=== PATIENT | female | born 1990 | race Two or more races ===

== ENCOUNTER 2018-01-10 03:17 | Emergency (ER) | payer MEDICAID ==
[~2018-01-10] VITALS: Ht 170.2 cm; Wt 88.5 kg
[2018-01-10 04:02] LABS: APPEARANCE,URINE CLEAR; BILIRUBIN, URINE NEGATIVE (NEGATIVE); GLUCOSE, URINE (UA) NEGATIVE (NEGATIVE); KETONES,URINE NEGATIVE (NEGATIVE); LEUKOCYTE ESTERASE ,URINE 1+ (NEGATIVE); NITRITE,URINE NEGATIVE (NEGATIVE); PH,URINE 5 (4.5-8.0); PROTEIN,URINE NEGATIVE (NEGATIVE); UROBILINOGEN,URINE NORMAL MG/DL (0.0-1.0)
[2018-01-10 04:04] LABS: COLOR,URINE YELLOW
[2018-01-10 05:27] VITALS: BP 121/80
--- NOTE | 2018-01-10 23:23 | Emergency Room Report ---
History of Present Illness General Chief Complaint: Complications Present Illness HPI Patient is a 28-year-old female who presented after increased abdominal pain. Patient reports having been approximate 3 months . She reports having vaginal bleeding several days ago which had improved. Patient reports having onset after having sexual intercourse. Patient reports having passed some small amounts of clot. She denies any fever. She denies any severe nausea or vomiting. She states that she is . She denies any fever or severe vaginal bleeding. Allergies: Coded Allergies: No Known Allergies (Unverified , 01/10/18) Patient History Past Medical History: see triage record Last Menstrual Period: 10/2017 Now: Yes : 3 Para: 2 Reviewed Nursing Documentation: PMH: Agreed; PSxH: Agreed Nursing Documentation-PMH Past Medical History: No Stated History Review of Systems All Other Systems: negative except mentioned in HPI Physical Exam Vital Signs Date Time Temp Pulse Resp B/P (MAP) Pulse Ox O2 Delivery O2 Flow Rate FiO2 01/10/18 03:34 98.1 77 16 121/80 97 Room Air 98.1 Sp02 EP Interpretation: reviewed, normal General Appearance: normal inspection, well appearing, no apparent distress, alert, GCS 15 Head: atraumatic ENT: normal ENT inspection, hearing grossly normal, normal voice Neck: normal inspection, full range of motion, supple, no bony tend Respiratory: normal inspection, lungs clear, normal breath sounds, no respiratory distress, no retraction, no wheezing Cardiovascular #1: regular rate, rhythm, no edema Gastrointestinal: normal inspection, normal bowel sounds, non tender, soft, no guarding, no hernia Genitourinary: no CVA tenderness Musculoskeletal: normal inspection, back normal, normal range of motion Neurologic: normal inspection, alert, oriented x3, responsive, speech normal Psychiatric: normal inspection, judgement/insight normal, mood/affect normal Skin: normal inspection, normal color, no rash Medical Decision Making Diagnostic Impression: Primary Impression: Threatened miscarriage ER Course Patient presented for vaginal bleeding. Differential diagnosis included wasn't limited to ectopic , menorrhagia, coagulopathy, incomplete , threatened among others.Because of complexity of patient's case laboratory testing and imaging studies were ordered.Pelvic ultrasound showed intrauterine with heart tones approximately 154. The patient was noted be approximately 13 weeks . Patient is advised follow-up with her ASSOCIATE DIRECTOR CAREER SERVICES in 1-2 days. Patient is advised to return if any worsening condition or if any changes in status that are concerning. This report is dictated with [employer] modern greek studies professor software which may occasionally lead to discrepancies related to use of this software. Labs Test 01/10/18 03:50 Urine Color Yellow Urine Appearance Clear Urine pH 5 (4.5-8.0) Urine Specific [place] 1.030 (1.005-1.035) Urine Protein Negative (NEGATIVE) Urine Glucose (UA) Negative (NEGATIVE) Urine Ketones Negative (NEGATIVE) Urine Occult Blood Negative (NEGATIVE) Urine Nitrite Negative (NEGATIVE) Urine Bilirubin Negative (NEGATIVE) Urine Urobilinogen Normal MG/DL (0.0-1.0) Urine Leukocyte Esterase 1+ (NEGATIVE) Urine RBC 0-2 /HPF (0 - 2) Urine WBC 0-2 /HPF (0 - 2) Urine Squamous Epithelial Cells Few /LPF (NONE/OCC) Urine Bacteria Few /HPF (NONE) Last Vital Signs Date Time Temp Pulse Resp B/P (MAP) Pulse Ox O2 Delivery O2 Flow Rate FiO2 01/10/18 05:27 98.1 16 121/80 97 Room Air 98.1 01/10/18 03:34 77 Status: improved Disposition: HOME, SELF-CARE Condition: Stable Patient Instructions: Threatened Marco Santillan MD Jan 10, 2018 23:23
--- NOTE | 2018-01-11 14:31 | Diagnostic Imaging Report ---
Indications: Abdominal pain, spotting during . Technique: Transabdominal real-time grayscale and duplex Doppler imaging of intrauterine was performed. Findings: Comparison: None. A single live intrauterine is noted with heart rate of approximately 157 bpm. Composite gestational age by ultrasound based on crown-rump length, biparietal diameter, femur length, abdominal circumference and head circumference approximately 13 weeks and 6 days. Please note that this is a limited exam and anatomy is not well evaluated. Cervix appears long and closed. Ovaries not identified. IMPRESSION: Quach live intrauterine with composite gestational age by ultrasound approximately 13 weeks, 6 days. heart rate of approximately 157 bpm. Note: A negative ultrasound evaluation does not insure well-being or positive outcome for the . Clinical evaluation by [employer] is highly recommended
== END 2018-01-10 05:28 | disposition home or self-care (01) ==
LOC: EMR 03:58
DX: O20.0 Threatened abortion (principal); Z3A.13 13 weeks gestation of pregnancy
CPT/HCPCS: 76801; 76830; 81003; 99284

== ENCOUNTER 2018-02-04 22:07 | Emergency (ER) | payer MEDICAID ==
[~2018-02-04] VITALS: Ht 170.2 cm; Wt 88.5 kg
[2018-02-04 22:55] VITALS: BP 114/68
--- NOTE | 2018-02-04 23:09 | Emergency Room Report ---
History of Present Illness General Chief Complaint: Complications Source: Patient Present Illness HPI Is a 28-year-old female who is 4, para 2, a 1, 16 weeks . She was here on January 10 for vaginal bleeding. Ultrasound showed a live IUP at 13 weeks. She had follow-up since then. She present today with increasing vaginal bleeding and cramping. She says she passed a large clot and then now with bleeding. Right red blood. Cramping is mild. No trauma. Did have sexual activity recently. No other complaint. she is O positive Allergies: Coded Allergies: No Known Allergies (Unverified , 01/10/18) Patient History Past Medical History: see triage record, old chart reviewed Past Surgical History: Pertinent Family History: none Social History: Denies: smoking Last Menstrual Period: 4 months ago Now: Yes - 4 months : 4 Para: 2 Immunizations: other Reviewed Nursing Documentation: PMH: Agreed; PSxH: Agreed Nursing Documentation-PMH Past Medical History: No Stated History Review of Systems Eye: Denies: eye pain, blurred vision ENT: Denies: ear pain, nose congestion, throat swelling Respiratory: Denies: cough, shortness of breath Cardiovascular: Denies: chest pain, palpitations Gastrointestinal: Denies: abdominal pain, diarrhea, nausea, vomiting Musculoskeletal: Denies: back pain, joint pain Skin: Denies: rash Neurological: Denies: headache, numbness Endocrine: Denies: increased thirst, increased urine Hematologic/Lymphatic: Denies: easy bruising All Other Systems: negative except mentioned in HPI Physical Exam Vital Signs Date Time Temp Pulse Resp B/P (MAP) Pulse Ox O2 Delivery O2 Flow Rate FiO2 02/04/18 22:16 98.1 117 16 125/77 100 Room Air 98.1 vitals with tachycardia Sp02 EP Interpretation: reviewed, normal General Appearance: well appearing, no apparent distress, alert Head: normocephalic, atraumatic Eyes: bilateral eye PERRL, bilateral eye EOMI ENT: hearing grossly normal, normal pharynx Neck: full range of motion, supple, no meningismus Respiratory: chest non-tender, lungs clear, normal breath sounds Cardiovascular #1: regular rate, rhythm, no murmur Gastrointestinal: normal bowel sounds, non tender, no mass, no organomegaly, no bruit, non-distended Genitourinary: other - Bimanual exam done with female RN as patent attorney. Os is fingertip open. There is blood on my glove. Musculoskeletal: back normal, gait/station normal, normal range of motion Neurologic: alert, oriented x3 Psychiatric: mood/affect normal Skin: warm/dry Medical Decision Making Diagnostic Impression: Primary Impression: Threatened miscarriage ER Course Patient with a threatened miscarriage. Increasing bleeding is concerning. She is O+. I bedside ultrasound showed a live IUP with heart rate around 120. Good movement. Small subchorionic bleed. Explained to patient that she has increased risk for miscarriage. Unfortunately at this stage not much can be done. We'll put her on bed rest. No heavy lifting. No intercourse. She will need close follow-up with HIGH WORKER for repeat ultrasound area Last Vital Signs Date Time Temp Pulse Resp B/P (MAP) Pulse Ox O2 Delivery O2 Flow Rate FiO2 02/04/18 22:55 97.8 107 18 114/68 100 Room Air 97.8 Status: improved Disposition: HOME, SELF-CARE Condition: Stable Referrals: NON PHYSICIAN (PCP) Additional Instructions: No heavy lifting. No sexual intercourse or anything in the vaginal area. Follow-up with your HIGH WORKER within a week. You may need another ultrasound. Return if symptom worsen. JOSE MCKEON M.D. Feb 04, 2018 23:09
[2018-02-04 23:16] LABS: APPEARANCE,URINE CLEAR; BILIRUBIN, URINE NEGATIVE (NEGATIVE); GLUCOSE, URINE (UA) NEGATIVE (NEGATIVE); KETONES,URINE NEGATIVE (NEGATIVE); LEUKOCYTE ESTERASE ,URINE NEGATIVE (NEGATIVE); NITRITE,URINE NEGATIVE (NEGATIVE); PH,URINE 6 (4.5-8.0); PROTEIN,URINE NEGATIVE (NEGATIVE); UROBILINOGEN,URINE NORMAL MG/DL (0.0-1.0)
[2018-02-04 23:31] LABS: COLOR,URINE YELLOW
[2018-02-04 23:48] VITALS: BP 114/68
== END 2018-02-04 23:48 | disposition home or self-care (01) ==
LOC: EMR 22:34
DX: O20.0 Threatened abortion (principal); Z3A.16 16 weeks gestation of pregnancy
CPT/HCPCS: 81003; 99283

== ENCOUNTER 2019-02-09 03:49 | Emergency (ER) | payer SELFPAY ==
[~2019-02-09] VITALS: Ht 167.6 cm; Wt 90.7 kg
[2019-02-09 04:25] VITALS: BP 137/88
--- NOTE | 2019-02-09 04:25 | NUR ---
ER Nurse Note: Pt came from home c/o vaginal bleeding. Per pt, she and her partner had intercourse and noticed blood during and afterwards; pt stated this occured last night. Not currently bleeding. Pt denies pain but has discomfort in her suprapubic area. Pt stated she is since 1 week ago. Will continue to [facility].
--- NOTE | 2019-02-09 04:37 | Emergency Room Report ---
History of Present Illness General Chief Complaint: Vaginal Source: Patient Present Illness HPI HPI: 29-year-old G4, P2 female with history of stillborn via 2018 presents for evaluation of vaginal bleeding in the setting of . Patient states she gets irregular periods and her last menses was sometime in November. She took a home test approximately 1 week ago which read positive. Earlier this evening, she is engaged in intercourse with her partner and noted vaginal bleeding. It was a trace amount however did persist after intercourse. It is now stopped. She denies any pelvic pain but notes a slight pressure or discomfort. She denies any dysuria, vaginal discharge, abdominal pain, nausea, vomiting, fever or any other change in her health otherwise. PMH: Denies PSH: section Allergies: Denies Social Hx: Current tobacco use, denies alcohol or drug use Allergies: Coded Allergies: No Known Allergies (Unverified , 01/10/18) Patient History Last Menstrual Period: unknown Now: Yes Para: 2 Nursing Documentation-PMH Past Medical History: No History, Except For Hx Asthma: Yes Review of Systems All Other Systems: negative except mentioned in HPI Physical Exam Vital Signs Date Time Temp Pulse Resp B/P (MAP) Pulse Ox O2 Delivery O2 Flow Rate FiO2 02/09/19 04:11 98.4 112 18 137/88 (104) 100 Room Air General: Awake and alert, no acute distress HEENT: NC/AT. EOMI. Neck: Supple, trachea midline Chest Wall: No tenderness, no deformity Cardiovascular: RRR. S1 and S2 normal. No murmur appreciated Resp: Normal work of breathing. No cough, wheezing or crackles appreciated Abdomen: Abdomen is soft, B's, nondistended. Nontender Skin: Intact. No abrasions, laceration or rash over the exposed skin MSK: Normal tone and bulk. Moving all extremities. No obvious deformity. Neuro: Awake and alert. Mentating appropriately. Medical Decision Making ER Course 29-year-old G4, P2 female with history of miscarriage presents to the evaluation for post coital bleeding in the setting of positive urine test 1 week ago. Patient is in no acute distress and is currently not bleeding , no distress, no pain and has no complaints at this time. Will check labs including a quantitative hCG and if within the viable range can perform an ultrasound. Laboratory Tests Test 02/09/19 04:35 White Blood Count 11.9 K/UL (4.8-10.8) H Red Blood Count 4.49 M/UL (4.20-5.40) Hemoglobin 13.3 G/DL (12.0-16.0) Hematocrit 40.5 % (37.0-47.0) Mean Corpuscular Volume 90 FL (80-99) Mean Corpuscular Hemoglobin 29.7 PG (27.0-31.0) Mean Corpuscular Hemoglobin Concent 32.9 G/DL (32.0-36.0) Red Cell Distribution Width 12.4 % (11.6-14.8) Platelet Count 378 K/UL (150-450) Mean Platelet Volume 6.4 FL (6.5-10.1) L Neutrophils (%) (Auto) 67.2 % (45.0-75.0) Lymphocytes (%) (Auto) 22.8 % (20.0-45.0) Monocytes (%) (Auto) 7.3 % (1.0-10.0) Eosinophils (%) (Auto) 1.7 % (0.0-3.0) Basophils (%) (Auto) 1.0 % (0.0-2.0) Urine Color Pale yellow Urine Appearance Clear Urine pH 6 (4.5-8.0) Urine Specific [place] 1.020 (1.005-1.035) Urine Protein Negative (NEGATIVE) Urine Glucose (UA) Negative (NEGATIVE) Urine Ketones Negative (NEGATIVE) Urine Blood Negative (NEGATIVE) Urine Nitrite Negative (NEGATIVE) Urine Bilirubin Negative (NEGATIVE) Urine Urobilinogen Normal MG/DL (0.0-1.0) Urine Leukocyte Esterase Negative (NEGATIVE) Sodium Level 135 MMOL/L (136-145) L Potassium Level 3.6 MMOL/L (3.5-5.1) Chloride Level 101 MMOL/L (98-107) Carbon Dioxide Level 28 MMOL/L (21-32) Anion Gap 6 mmol/L (5-15) Blood Urea Nitrogen 12 mg/dL (7-18) Creatinine 0.7 MG/DL (0.55-1.30) Estimate Glomerular Filtration Rate > 60 mL/min (>60) Glucose Level 95 MG/DL (74-106) Calcium Level 8.8 MG/DL (8.5-10.1) Total Bilirubin 0.1 MG/DL (0.2-1.0) L Aspartate Amino Transferase (AST) 13 U/L (15-37) L Alanine Aminotransferase (ALT) 17 U/L (12-78) Alkaline Phosphatase 63 U/L (46-116) Total Protein 7.4 G/DL (6.4-8.2) Albumin 3.0 G/DL (3.4-5.0) L Globulin 4.4 g/dL Albumin/Globulin Ratio 0.7 (1.0-2.7) L Human Chorionic Gonadotropin, Quant 82332 mIU/mL (1-6) H Reevaluation Time: 07:04 Last Vital Signs Date Time Temp Pulse Resp B/P (MAP) Pulse Ox O2 Delivery O2 Flow Rate FiO2 02/09/19 04:11 98.4 112 18 137/88 (104) 100 Room Air Status: unchanged Reevaluation Impression Labs have returned largely within normal limits. hCG quantitative greater than 33,000. The patient is pending ultrasound. She will be signed out to Dr. Wong pending imaging and ultimate disposition. She remained stable condition Please note that this report is being documented using [employer] technology. This can lead to erroneous entry secondary to incorrect interpretation by the dictating instrument. Jae Calhoun MD Feb 09, 2019 04:37
[2019-02-09 05:13] LABS: APPEARANCE,URINE CLEAR; BILIRUBIN, URINE NEGATIVE (NEGATIVE); COLOR,URINE PALE YELLOW; GLUCOSE, URINE (UA) NEGATIVE (NEGATIVE); KETONES,URINE NEGATIVE (NEGATIVE); LEUKOCYTE ESTERASE ,URINE NEGATIVE (NEGATIVE); NITRITE,URINE NEGATIVE (NEGATIVE); PH,URINE 6 (4.5-8.0); PROTEIN,URINE NEGATIVE (NEGATIVE); UROBILINOGEN,URINE NORMAL MG/DL (0.0-1.0)
[2019-02-09 05:14] LABS: EOSINOPHILS % (AUTO) 1.7 % (0.0-3.0); HEMATOCRIT 40.5 % (37.0-47.0); HEMOGLOBIN 13.3 G/DL (12.0-16.0); LYMPHOCYTES % (AUTO) 22.8 % (20.0-45.0); MEAN CORPUSCULAR VOLUME 90 FL (80-99); MONOCYTES % (AUTO) 7.3 % (1.0-10.0); NEUTROPHILS % (AUTO) 67.2 % (45.0-75.0); PLATELET COUNT 378 K/UL (150-450); RED BLOOD COUNT 4.49 M/UL (4.20-5.40); RED CELL DISTRIBUTION WIDTH 12.4 % (11.6-14.8); WHITE BLOOD COUNT 11.9 K/UL (4.8-10.8)
[2019-02-09 05:21] LABS: ANION GAP 6 mmol/L (5-15); BLOOD UREA NITROGEN 12 mg/dL (7-18); CALCIUM 8.8 MG/DL (8.5-10.1); CARBON DIOXIDE 28 MMOL/L (21-32); CHLORIDE 101 MMOL/L (98-107); CREATININE 0.7 MG/DL (0.55-1.30); POTASSIUM 3.6 MMOL/L (3.5-5.1); SODIUM 135 MMOL/L (136-145)
[2019-02-09 05:26] LABS: ALANINE AMINOTRANSFERASE 17 U/L (12-78); ALBUMIN/GLOBULIN RATIO 0.7 (1.0-2.7); ALKALINE PHOSPHATASE 63 U/L (46-116); ASPARTATE AMINO TRANSFERASE 13 U/L (15-37); BILIRUBIN,TOTAL 0.1 MG/DL (0.2-1.0)
--- NOTE | 2019-02-09 06:05 | NUR ---
ER Nurse Note: US notified and pt understands and agrees to US. Pt VSS, no signs of distress. All safety measures met; will continue to [facility].
--- NOTE | 2019-02-09 06:38 | NUR ---
ER Nurse Note: Talked to a senior human resources representative from [employer] for US; was informed that the US inspection engineer is not answering but will continue to notify other US for the most available US. Pt calm, cooperative, will continue to [facility].
[2019-02-09 06:42] VITALS: BP 134/80
--- NOTE | 2019-02-09 06:51 | NUR ---
ER Nurse Note: F/U call with [place]; Charbel from is contacted.
--- NOTE | 2019-02-09 07:03 | NUR ---
ER Nurse Note: Pt a&ox4, VSS, no signs of distress. SLIV LT AC; patent. Awaiting US. All safety measures met; will endorse to oncoming shift for continuity of care.
--- NOTE | 2019-02-09 07:45 | NUR ---
ED Nurse Note: US staff at the bed side.
[2019-02-09 08:40] VITALS: BP 124/80
--- NOTE | 2019-02-09 08:40 | NUR ---
ER DISCHARGE NOTE: Patient is cleared to be discharged per ERMD, pt is aox4, on room air, with stable vital signs. pt was given dc and prescription instructions, pt was able to verbalize understanding, pt id band and iv site removed without complications. pt is able to ambulate with steady gait. pt took all belongings.
--- NOTE | 2019-02-09 09:09 | Diagnostic Imaging Report ---
EXAM: US After First Trimester, Transabdominal US , Transvaginal CLINICAL HISTORY: BLD TECHNIQUE: Real-time transabdominal and endovaginal obstetrical ultrasound of the maternal pelvis and a second or third trimester with image documentation. Endovaginal imaging was used for better evaluation of the fetus and adnexa. COMPARISON: No relevant prior studies available. FINDINGS: Fetus: Single live intrauterine corresponding to 14 weeks 1 day by ultrasound with estimated date of delivery 08/09/19. Patient is 11 weeks 1 day by LMP. Heart rate: heart rate 169 BPM. Presentation: Cephalic Placenta: Posterior placenta. No abruption. Amniotic fluid: CARLOS is low 5.07 cm. Anatomy: Intracranial/face anatomy not seen. Spinal anatomy not seen. Abdominal anatomy not seen. Extremities not seen. Four-chamber heart not seen. Umbilical cord not seen. BIOMETRICS Gestational age: 14 weeks 1 day by ultrasound and 11 weeks 1 day by LMP. OMAR: 08/09/19 by ultrasound EFW: 93 g plus or -14 g, greater than 97th percentile by LMP BPD: BPD 2.51 cm, 14 weeks 2 days. HC: HC 8.9 cm, 14 weeks 0 days. AC: AC 7.59 cm, 14 weeks 1 day. FL: FL 1.5 cm, 14 weeks 3 days. MATERNAL: Uterus: Unremarkable. No myometrial mass. Cervix: Unremarkable as visualized. Closed. Free fluid: No free fluid. IMPRESSION: 1. Single live intrauterine corresponding to 14 weeks 1 day by ultrasound with estimated date of delivery 08/09/19. Patient is 11 weeks 1 day by LMP. 2. CARLOS is low 5.07 cm.
== END 2019-02-09 08:40 | disposition home or self-care (01) ==
LOC: EMR 04:38
DX: O46.91 Antepartum hemorrhage, unspecified, first trimester (principal); Z3A.13 13 weeks gestation of pregnancy; O99.331 Smoking (tobacco) complicating pregnancy, first trimester; F17.200 Nicotine dependence, unspecified, uncomplicated
CPT/HCPCS: 36415; 76801; 76830; 80053; 81003; 84702; 85025; 86850; 86900; 86901; 99284

== ENCOUNTER 2020-01-15 14:38 | Emergency (ER) | payer OTHER ==
[~2020-01-15] VITALS: Ht 167.6 cm; Wt 90.7 kg
--- NOTE | 2020-01-15 16:00 | NUR ---
ED Nurse Note:pt. came with abscess on right buttock no drainage, ER PA preformed I&D of it and dry dressing with packing was placed over wound
[2020-01-15 16:14] VITALS: BP 126/76
[2020-01-15] MEDS ORDERED: TYLENOL EXTRA500 MG ORAL (16:14)
[2020-01-15] MEDS ORDERED: CEPHALEXIN500 MG ORAL (16:14)
[2020-01-15] MEDS ORDERED: Lidocaine 1% MPF 10mg/ml 5ml INJ ONE (16:15)
[2020-01-15 16:26] VITALS: BP 126/76
--- NOTE | 2020-01-15 16:28 | Emergency Room Report ---
History of Present Illness General Chief Complaint: Skin Rash/Abscess Source: Patient Present Illness HPI 30 year old female, with no past medical history, who is 4 months , presents with an abscess to her right buttock for 4 days. She reports pain is 9/ 10. Denies taking any medication for pain. Denies fever or chills. Denies drainage. Allergies: Coded Allergies: No Known Allergies (Unverified , 01/10/18) COVID-19 Screening Contact w/high risk pt: No Experienced COVID-19 symptoms?: No COVID-19 Testing performed [employer]: Yes COVID-19 Screening: Negative COVID-19 COVID-19 Testing Source: [employer] facility. Patient History Past Medical History: see triage record Now: Yes - 4 months Reviewed Nursing Documentation: PMH: Agreed; PSxH: Agreed Nursing Documentation-PMH Past Medical History: No History, Except For Hx Asthma: Yes Review of Systems Skin: Reports: see HPI All Other Systems: negative except mentioned in HPI Physical Exam Vital Signs Date Time Temp Pulse Resp B/P (MAP) Pulse Ox O2 Delivery O2 Flow Rate FiO2 01/15/20 14:44 99.0 110 16 126/76 (93) 100 Room Air Sp02 EP Interpretation: reviewed, normal General Appearance: normal inspection, well appearing Head: normocephalic Neck: supple Psychiatric: judgement/insight normal, mood/affect normal Skin: other - 3 cm indurated abscess to the right buttock. Does not involve anal opening. Very firm, tendern to touch, no drainage. Mild surroudning cellulitis. Procedures Incision and Drainage Incision and Drainage : Consent: Verbal Site: Right buttock Blade Size: 11 I & D Procedure: betadine prep, sterile dressing applied Wound Location: other Wound's Depth, Shape: superficial Wound Length (cm): 3 Anesthesia: 1% Lidocaine Medical Decision Making PA Attestation Dr. Love is my supervising physician whom patient management and care has been discussed with. Diagnostic Impression: Primary Impression: Abscess ER Course Pt. presents to the ED c/o abscess Ddx considered but are not limited to cellulitis, perianal abscess, rectal abscess, bite Vital signs: are WNL, pt. is afebrile H&PE are most consistent with abscess ORDERS: none required at this time, the diagnosis is clinical ED INTERVENTIONS: Given 1 g IM Rocephin. I&D with no complications, packing placed. DISCHARGE: At this time pt. is stable for d/c to home. Will provide printed patient care instructions, and prescription for Keflex and Tylenol. Advised warm compress. I informed the patient that since she is , I am limited with the antibiotics that I am able to give her and there is a risk that she may need further intervention. Advised to follow-up with her CASH SALES AUDIT CLERK in 2 to 3 days for recheck. Strict return precautions given. Care plan and follow up instructions have been discussed with the patient prior to discharge. Last Vital Signs Date Time Temp Pulse Resp B/P (MAP) Pulse Ox O2 Delivery O2 Flow Rate FiO2 01/15/20 16:14 99.0 100 16 126/76 100 Room Air Disposition: HOME, SELF-CARE Condition: Stable Scripts Cephalexin* (KEFLEX*) 500 Mg Capsule 500 MG ORAL EVERY 6 HOURS for 7 Days, #28 CAP Prov: Jenni Gamez. P.Erendira 01/15/20 Acetaminophen* (TYLENOL EXTRA STRENGTH*) 500 Mg Tablet 1000 MG ORAL Q8HR PRN for Mild Pain/Temp > 100.5, #60 TAB 0 Refills Prov: Jenni Gamez. P.Erendira 01/15/20 Referrals: [facility],REFERRING (PCP) Patient Instructions: Abscess Additional Instructions: Take medications as directed. Apply warm compress to the area several times a day. Follow up with your CASH SALES AUDIT CLERK in 2-3 days for recheck. Follow up with a Primary Care Provider in 1-2 days, even if your symptoms have resolved. --Please review list of primary care clinics, if you do not already have a primary care provider Return to the emergency department sooner if new symptoms occur, or current symptoms become worse. - Please note that this Emergency Department Report was dictated using [employer] public safety technology software, occasionally this can lead to erroneous entry secondary to interpretation by the dictation equipment. Jenni Gamez Jan 15, 2020 16:28
--- NOTE | 2020-01-15 16:29 | NUR ---
ED Nurse Note: Pt cleared by health care Provider for discharge. DC instructions/prescription was given and explained to pt and verbalized understanding of teachings. All medical deviecs such as ID band removed. Pt is AAO x4, ambulatory and left with all personal belongings.
== END 2020-01-15 17:01 | disposition home or self-care (01) ==
LOC: EMR 15:23
DX: O26.892 Other specified pregnancy related conditions, second trimester (principal); L02.31 Cutaneous abscess of buttock; Z3A.00 Weeks of gestation of pregnancy not specified
CPT/HCPCS: 10060; 96372; 96374; J0696; Z7502; 99284

== ENCOUNTER 2020-01-18 16:44 | Emergency (ER) | payer OTHER ==
[~2020-01-18] VITALS: Ht 167.6 cm; Wt 90.7 kg
[~2020-01-18 16:44] MED LIST: CEPHALEXIN500 MG ORAL; TYLENOL EXTRA500 MG ORAL
[2020-01-18 17:00] VITALS: BP 109/70
--- NOTE | 2020-01-18 17:00 | NUR ---
ED Nurse Note: Patient walked in to ED for evaluation. Per pt, she was here 2 days ago and had her abscess drained on right buttocks. Pt was prescribed with pain medication and atb. Pt was told to return to ED if she is not able to f/u with primary MD in the next 2 days. Pt c/o pain on the affected area.
--- NOTE | 2020-01-18 17:12 | Emergency Room Report ---
History of Present Illness General Chief Complaint: Skin Rash/Abscess Source: Patient Present Illness HPI 30-year-old female with no significant past medical appears to be 4 months here complaining of painful draining abscess on right buttock. Patient was here [facility] 2 days ago was given Keflex and Tylenol for symptom relief. Incision and drainage was done. Patient has been having her mom help her at home to change the dressing. Denies any fever and chills. Patient does not mention upon arrival that she is . Also in the triage note it was no mention the patient is . Patient also reports that she has been taking some Motrin at home. Upon discharge with the patient I found out through the notes from previous visits that patient is 4 months . Called patient several times and left several messages to call us back regarding the prescription. Also called the pharmacy that was listed online on her information to avoid giving ibuprofen 800 and Bactrim DS . I called in clindamycin instead. However the pharmacy was closed. Patient is still in her 1st-2nd trimester and ibuprofen and Bactrim DS are now recommended however are not teacher genic. Patient was also given a very low dose of Toradol here and Tylenol 3. Has not taken any medication for symptom relief. Patient denies any hemorrhage at this time. Allergies: Coded Allergies: No Known Allergies (Unverified , 01/10/18) COVID-19 Screening Contact w/high risk pt: No Experienced COVID-19 symptoms?: No COVID-19 Testing performed ERP CONSULTANT: No Patient History Last Menstrual Period: september 2019 Now: Yes - 4 months : 5 Para: 2 Immunizations: UTD Reviewed Nursing Documentation: PMH: Agreed; PSxH: Agreed Nursing Documentation-PM Past Medical History: No History, Except For Hx Asthma: Yes Review of Systems All Other Systems: negative except mentioned in HPI Physical Exam Vital Signs Date Time Temp Pulse Resp B/P (MAP) Pulse Ox O2 Delivery O2 Flow Rate FiO2 01/18/20 16:50 98.4 94 17 109/70 (83) 98 Room Air Sp02 EP Interpretation: reviewed, normal General Appearance: mild distress Head: normocephalic, atraumatic Eyes: bilateral eye normal inspection, bilateral eye PERRL ENT: hearing grossly normal, normal pharynx, no angioedema, normal voice Neck: full range of motion, supple/symm/no masses Respiratory: chest non-tender, lungs clear, normal breath sounds, no rhonchi, no respiratory distress, no retraction, speaking full sentences Cardiovascular #1: regular rate, rhythm, no edema, no murmur Gastrointestinal: normal bowel sounds, non tender, soft, non-distended, no guarding, no rebound Rectal: other - Drain healing abscess in the right buttocks, packing strip appears to be gone as patient mentions that she took it off Genitourinary: no CVA tenderness Neurologic: alert, motor strength/tone normal, oriented x3, sensory intact, responsive, speech normal Skin: no rash, other - Draining abscess right buttock Lymphatic: normal inspection Medical Decision Making PA Attestation All my diagnosis and treatment plans were reviewed ad discussed with my supervising physician Dr. Sy Diagnostic Impression: Primary Impression: Wound check, abscess ER Course 30-year-old female with no significant past medical appears to be 4 months here complaining of painful draining abscess on right buttock. Patient was here [facility] 2 days ago was given Keflex and Tylenol for symptom relief. Incision and drainage was done. Patient has been having her mom help her at home to change the dressing. Denies any fever and chills. Patient does not mention upon arrival that she is . Also in the triage note it was no mention the patient is . Patient also reports that she has been taking some Motrin at home. Upon discharge with the patient I found out through the notes from previous visits that patient is 4 months . Called patient several times and left several messages to call us back regarding the prescription. Also called the pharmacy that was listed online on her information to avoid giving ibuprofen 800 and Bactrim DS . I called in clindamycin instead. However the pharmacy was closed. Patient is still in her 1st-2nd trimester and ibuprofen and Bactrim DS are now recommended however are not teacher genic. Patient was also given a very low dose of Toradol here and Tylenol 3. Has not taken any medication for symptom relief. Patient denies any hemorrhage at this time. Ddx considered but are not limited to : Cellulitis, superficial infection, abscess Vital signs: are WNL, pt. is afebrile H&PE are most consistent with: Draining abscess, wound check ORDERS: Clindamycin, Tylenol 3 ED INTERVENTIONS: Toradol IM, Tylenol 3, wound clean and dressed DISCHARGE: At this time pt. is stable for d/c to home. Will provide printed patient care instructions, and any necessary prescriptions. Care plan and follow up instructions have been discussed with the patient prior to discharge. Patient take medication as directed, follow primary care provider, worsening symptoms return to the emergency room. Last Vital Signs Date Time Temp Pulse Resp B/P (MAP) Pulse Ox O2 Delivery O2 Flow Rate FiO2 01/18/20 17:00 98.4 94 17 109/70 98 Room Air Disposition: HOME, SELF-CARE Condition: Stable Scripts Clindamycin Hcl* (CLINDAMYCIN HCL*) 150 Mg Capsule 300 MG ORAL TID for 7 Days, #21 CAP Prov: Florence Emmanuel 01/18/20 Acetaminophen With Codeine (T#3) (TYLENOL #3 TAB*) Y Tab 1 TAB ORAL Q8HR PRN for For Pain for 4 Days, #12 TAB Prov: Florence Emmanuel 01/18/20 Patient Instructions: Abscess Additional Instructions: Take medication as directed, follow-up with your primary care provider, you need a wound check in 2 days, if worsening symptoms return to the emergency room Florence Emmanuel Jan 18, 2020 17:12
[2020-01-18] MEDS ORDERED: ACETAMINOPHEN-1 EAC1 ORAL (17:14)
[2020-01-18] MEDS ORDERED: IBU800 MG PO (17:14)
[2020-01-18] MEDS ORDERED: BACTRIM DS TAB1 EAC1 ORAL (17:14)
[2020-01-18] MEDS ORDERED: Ketorolac 30mg Inj IM ONE (17:15)
[2020-01-18] MEDS ORDERED: Bacitracin Oint UD TOPIC ONE (17:15)
[2020-01-18] MEDS ORDERED: Tylenol #3 tab (300mg/30mg) ORAL ONE (17:15)
[2020-01-18 17:29] VITALS: BP 109/70
--- NOTE | 2020-01-18 17:29 | NUR ---
ED Nurse Note: Pt cleared by ERPA for discharge. DC instructions/prescription was given and explained to pt and verbalized understanding of teachings. All medical deviecs such as ID band removed. Pt is AAO x4, ambulatory and left with all personal belongings.
[2020-01-18] MEDS ORDERED: CLINDAMYCIN HC150 MG ORAL (17:57)
== END 2020-01-18 17:29 | disposition home or self-care (01) ==
LOC: EMR 17:26
DX: O26.899 Other specified pregnancy related conditions, unspecified trimester (principal); L02.31 Cutaneous abscess of buttock; Z3A.00 Weeks of gestation of pregnancy not specified
CPT/HCPCS: 96372; J1885; Z7502; 99283